=== PATIENT | female | born 1955 | race Caucasian/White ===

== ENCOUNTER 2021-02-04 09:18 | Outpatient (CLI) | payer OTHER, SELFPAY | END 2021-02-04 09:19 | disposition home or self-care (01) | LOC: ANHCOVIDVC 09:18 | DX: Z23 Encounter for immunization (principal) | CPT/HCPCS: 0001A; 91300 ==

== ENCOUNTER 2021-02-25 09:19 | Outpatient (CLI) | payer OTHER, SELFPAY | END 2021-02-25 09:20 | disposition home or self-care (01) | LOC: ANHCOVIDVC 09:19 | DX: Z23 Encounter for immunization (principal) | CPT/HCPCS: 0002A; 91300 ==

== ENCOUNTER 2021-05-23 10:42 | Outpatient (CLI) | payer OTHER, SELFPAY ==
--- NOTE | ~2021-05-23 | US_ITS ---
EXAMINATION: US soft tissue LE LT DATE: 05/23/2021 11:47 INDICATION: Left calf lump. TECHNIQUE: Multiple grayscale and Doppler ultrasound images of the left lower leg were obtained. COMPARISON: None FINDINGS: There is no abnormal mass in the patient's area of concern in left lower leg. IMPRESSION: 1. No abnormal mass in the patient's area of concern in left lower leg. Reviewed, dictated and finalized at location A.
== END 2021-05-23 10:43 | disposition home or self-care (01) ==
PROVIDERS: PCP Nurse Practitioner Family; Visit Provider Nurse Practitioner Family
DX: M79.89 Other specified soft tissue disorders (principal)
CPT/HCPCS: 76882